=== PATIENT | female | born 1985 | race Caucasian/White ===

== ENCOUNTER 2022-08-06 16:23 | Emergency (ER) | payer OTHER ==
[2022-08-06 17:12] LABS: Absolute Neutrophil Ct (ANC) 4.32 x10^3/uL (1.4-6.9); Basophil (Absolute #) 0.07 x10^3/uL (0-0.4); Eosinophil % 4.9 % (0.00-5.0); Eosinophil (Absolute #) 0.41 x10^3/uL (0-0.5); Hematocrit 47.2 % (35-47); Hemoglobin 15.7 g/dL (12.0-16.0); Lymphocyte (Absolute #) 3.05 x10^3/uL (1.0-4.6); Lymphocytes % 36.7 % (24.0-44.0); Mean Cell Volume 90.9 fL (78-100); Mean Corpuscular Hemoglobin 30.3 pg (26-32); Mean Corpuscular Hgb Concent. 33.3 g/dL (32-36); Mean Platelet Volume 9.5 fL (7.5-11.0); Monocyte (Absolute #) 0.44 x10^3/uL (0.0-1.3); Monocytes % 5.3 % (0.0-12.0); Neutrophil % 51.9 % (36.0-66.0); Platelet Count 394 x10^3/uL (150-450); Red Blood Count 5.19 x10^6/uL (4.1-5.4); Red Cell Distribution Width 11.9 % (11.5-14.0); White Blood Count 8.3 x10^3/uL (4.0-10.5)
[2022-08-06 17:19] LABS: Barbiturate,Urine NEGATIVE (NEGATIVE); Benzodiazepine,Urine POSITIVE (NEGATIVE); Cocaine,Urine NEGATIVE (NEGATIVE); Methadone,Urine NEGATIVE (NEGATIVE); Opiate,Urine NEGATIVE (NEGATIVE); PCP,Urine NEGATIVE (NEGATIVE); THC,Urine POSITIVE (NEGATIVE)
[2022-08-06 17:26] LABS: ALBUMIN 4.4 g/dL (3.5-5.0); ALKALINE PHOSPHATASE 72 U/L (38-126); BLOOD UREA NITROGEN 11 mg/dL (7-17); CHLORIDE 103 mmol/L (98-107); Calcium 9.1 mg/dL (8.4-10.2); Carbon Dioxide 28 mmol/L (22-30); Creatinine 1 0.78 mg/dL (0.52-1.04); EST GLOMERULAR FILTRATION RATE > 60.0 ML/MIN; ETHYL ALCOHOL < 10 mg/dL (0-10); Glucose 100 mg/dL (74-106); Potassium 4.3 mmol/L (3.5-5.1); SGOT/AST 17 U/L (14-36); SGPT/ALT 16 U/L (0-35); SODIUM 139 mmol/L (137-145); Total Protein 7.4 g/dL (6.3-8.2)
[2022-08-06 17:49] LABS: INFLUENZA A NEGATIVE (NEGATIVE); INFLUENZA B NEGATIVE (NEGATIVE); RESPIRATORY SYNCTIAL VIRUS NEGATIVE (Negative); SARS-CoV-2 Xpert Express NEGATIVE (NEGATIVE)
--- NOTE | 2022-08-06 17:56 | ERPHSYRPT ---
- History of Present Illness Time Seen by Provider: 08/06/22 16:24 Source: patient, police Exam Limitations: no limitations Patient Subjective Stated Complaint: pt brought by police to be cleared [facility], they have ed papers signed by mixer operator, pt states she tried to hang herself with a rope, but states the rope kept coming loose.she staes she feels alone and has no one, her kds are with their dad. Triage Nursing Assessment: pt walked in , alert, resp easy, skin w/d/p. pt has bruising to neck under chin, no other injuries noted she staes she tried to hurt herself 2 days ago Physician History: 37 years old female with history of anxiety, depression is brought in the ER by PD for medical clearance. Patient apparently tried to hang herself couple of days ago, was Eded but could not find her. Patient today did admit to [facility] therapist that she has a plan of jumping in front of car. She does not want to live as she has no one to talk to her. Her kids have been taken of a and no family members live nearby. She has ideas of hopelessness, helplessness. Does report occasional use of drugs and alcohol. Denies any homicidal ideations. Timing/Duration: week(s), gradual onset, worse Severity of Symptoms-Max: severe Severity of Symptoms-Current: severe Context related to: son, daughter Suicidal thoughts: attempt, specific plan Associated Symptoms: depressed, frustrated, suicidal ideation Previous symptoms: same symptoms as today Allergies/Adverse Reactions: No Known Drug Allergies Allergy (Unverified 08/06/22 16:44) Home Medications: No Reportable Medications [No Reported Medications] 08/06/22 [History] Hx Tetanus, Diphtheria Vaccination/Date Given: No Hx Influenza Vaccination/Date Given: No Hx Pneumococcal Vaccination/Date Given: No Immunizations Up to Date: Yes Travel Risk - International Travel Have you traveled outside of the country in past 3 weeks: No - Coronavirus Screening Are you exhibiting any of the following symptoms?: No Close contact with a COVID-19 positive Pt in past 14-21 Days: No - Vaccine Status Have you recieved a Covid-19 vaccination: No - Past Medical History Pertinent Past Medical History: Yes Psycho-Social History: Anxiety, Depression - Past Surgical History Past Surgical History: No - Social History Smoking Status: Current every day smoker Exposure to second hand smoke: Yes Drug Use: marijuana Patient Lives Alone: Yes - Female History Hx Last Menstrual Period: unsure Hx Now: No - Review of Systems Constitutional: No Symptoms Eyes: No Symptoms Ears, Nose, & Throat: No Symptoms Respiratory: No Symptoms Cardiac: No Symptoms Abdominal/Gastrointestinal: No Symptoms Genitourinary Symptoms: No Symptoms Musculoskeletal: No Symptoms Neurological: No Symptoms Psychological: Anxiety, Depression, Suicidal Ideations Endocrine: No Symptoms Hematologic/Lymphatic: No Symptoms Immunological/Allergic: No Symptoms - Nursing Vital Signs Nursing Vital Signs: Initial Vital Signs Temperature 97.0 F 08/06/22 16:38 Pulse Rate 113 H 08/06/22 16:38 Respiratory Rate 18 08/06/22 16:38 Blood Pressure 127/100 08/06/22 16:38 O2 Sat by Pulse Oximetry 100 08/06/22 16:38 Pain Scale Pain Intensity 0 - Physical Exam General Appearance: no apparent distress, alert Eyes, Ears, Nose, Throat Exam: normal ENT inspection Neck Exam: normal inspection, non-tender, supple Respiratory Exam: normal breath sounds, lungs clear Cardiovascular Exam: normal heart sounds, tachycardia Gastrointestinal/Abdominal Exam: soft, normal bowel sounds, No tenderness Extremities Exam: normal inspection, normal range of motion Current Suicidality: has suicide plan Neurological Exam: alert, calm, sink cutter II-XII nml as tested, oriented x 3, No normal mood/affect Appearance: appropriate appearance, appropriate insight, neat, no memory impairment (Mild but) Behavior/Eye Contact/Speech: alert & cooperative, avoids eye contact, decreased rate of speech Thoughts/Hallucinations: no apparent hallucination Skin Exam: normal color SpO2 Interpretation: normal SpO2: 100 O2 Delivery: Room Air Lab/Rad Data: Laboratory Result Diagrams 08/06/22 17:10 08/06/22 17:10 Laboratory Results 08/06/22 08/06/22 08/06/22 Range/Units 17:10 17:10 17:10 WBC 8.3 (4.0-10.5) x10^3/uL RBC 5.19 (4.1-5.4) x10^6/uL Hgb 15.7 (12.0-16.0) g/dL Hct 47.2 H (35-47) % MCV 90.9 (78-100) fL MCH 30.3 (26-32) pg MCHC 33.3 (32-36) g/dL RDW 11.9 (11.5-14.0) % Plt Count 394 (150-450) x10^3/uL MPV 9.5 (7.5-11.0) fL Gran % 51.9 (36.0-66.0) % Immature Gran % (Auto) 0.4 (0.00-0.4) % Nucleat RBC Rel Count 0.0 (0.00-0.1) % Eos # (Auto) 0.41 (0-0.5) x10^3/uL Immature Gran # (Auto) 0.03 (0.00-0.03) x10^3u/L Absolute Lymphs (auto) 3.05 (1.0-4.6) x10^3/uL Absolute Monos (auto) 0.44 (0.0-1.3) x10^3/uL Absolute Nucleated RBC 0.00 (0.00-0.01) x10^3u/L Lymphocytes % 36.7 (24.0-44.0) % Monocytes % 5.3 (0.0-12.0) % Eosinophils % 4.9 (0.00-5.0) % Basophils % 0.8 (0.0-0.4) % Absolute Granulocytes 4.32 (1.4-6.9) x10^3/uL Basophils # 0.07 (0-0.4) x10^3/uL Sodium 139 (137-145) mmol/L Potassium 4.3 (3.5-5.1) mmol/L Chloride 103 (98-107) mmol/L Carbon Dioxide 28 (22-30) mmol/L Anion Gap 11.0 (5-15) MEQ/L BUN 11 (7-17) mg/dL Creatinine 0.78 (0.52-1.04) mg/dL Estimated GFR > 60.0 ML/MIN Glucose 100 (74-106) mg/dL Calcium 9.1 (8.4-10.2) mg/dL Total Bilirubin 0.70 (0.2-1.3) mg/dL AST 17 (14-36) U/L ALT 16 (0-35) U/L Alkaline Phosphatase 72 (38-126) U/L Serum Total Protein 7.4 (6.3-8.2) g/dL Albumin 4.4 (3.5-5.0) g/dL Urine HCG, Qual (Negative) Urine Opiates Level (NEGATIVE) Ur Methadone (NEGATIVE) Urine Barbiturates (NEGATIVE) Ur Phencyclidine (PCP) (NEGATIVE) Urine Amphetamine (NEGATIVE) U Benzodiazepine Level (NEGATIVE) Urine Cocaine (NEGATIVE) Urine Marijuana (THC) (NEGATIVE) Ethyl Alcohol < 10 (0-10) mg/dL Influenza Type A Ag NEGATIVE (NEGATIVE) Influenza Type B Ag NEGATIVE (NEGATIVE) RSV (PCR) NEGATIVE (Negative) SARS-CoV-2 (PCR) NEGATIVE (NEGATIVE) 08/06/22 08/06/22 Range/Units 16:45 16:45 WBC (4.0-10.5) x10^3/uL RBC (4.1-5.4) x10^6/uL Hgb (12.0-16.0) g/dL Hct (35-47) % MCV (78-100) fL MCH (26-32) pg MCHC (32-36) g/dL RDW (11.5-14.0) % Plt Count (150-450) x10^3/uL MPV (7.5-11.0) fL Gran % (36.0-66.0) % Immature Gran % (Auto) (0.00-0.4) % Nucleat RBC Rel Count (0.00-0.1) % Eos # (Auto) (0-0.5) x10^3/uL Immature Gran # (Auto) (0.00-0.03) x10^3u/L Absolute Lymphs (auto) (1.0-4.6) x10^3/uL Absolute Monos (auto) (0.0-1.3) x10^3/uL Absolute Nucleated RBC (0.00-0.01) x10^3u/L Lymphocytes % (24.0-44.0) % Monocytes % (0.0-12.0) % Eosinophils % (0.00-5.0) % Basophils % (0.0-0.4) % Absolute Granulocytes (1.4-6.9) x10^3/uL Basophils # (0-0.4) x10^3/uL Sodium (137-145) mmol/L Potassium (3.5-5.1) mmol/L Chloride (98-107) mmol/L Carbon Dioxide (22-30) mmol/L Anion Gap (5-15) MEQ/L BUN (7-17) mg/dL Creatinine (0.52-1.04) mg/dL Estimated GFR ML/MIN Glucose (74-106) mg/dL Calcium (8.4-10.2) mg/dL Total Bilirubin (0.2-1.3) mg/dL AST (14-36) U/L ALT (0-35) U/L Alkaline Phosphatase (38-126) U/L Serum Total Protein (6.3-8.2) g/dL Albumin (3.5-5.0) g/dL Urine HCG, Qual NEGATIVE (Negative) Urine Opiates Level NEGATIVE (NEGATIVE) Ur Methadone NEGATIVE (NEGATIVE) Urine Barbiturates NEGATIVE (NEGATIVE) Ur Phencyclidine (PCP) NEGATIVE (NEGATIVE) Urine Amphetamine POSITIVE (NEGATIVE) U Benzodiazepine Level POSITIVE (NEGATIVE) Urine Cocaine NEGATIVE (NEGATIVE) Urine Marijuana (THC) POSITIVE (NEGATIVE) Ethyl Alcohol (0-10) mg/dL Influenza Type A Ag (NEGATIVE) Influenza Type B Ag (NEGATIVE) RSV (PCR) (Negative) SARS-CoV-2 (PCR) (NEGATIVE) - Progress Progress: unchanged Progress Note: 08/06/22 18:14 37-year-old is evaluated for medical clearance as patient has already been accepted at [facility] for inpatient. Patient is medically cleared and is being discharged/transferred to [facility]. Counseled pt/family regarding: lab results, diagnosis, need for follow-up - Departure Departure Disposition: Transfer Clinical Impression: Suicide attempt, Polysubstance abuse, Severe depression Condition: Stable Critical Care Time: No Referrals: HEMA AYON [Primary Care Provider] - Follow up/PCP as directed
[2022-08-06 18:07] LABS: Amphetamine,Urine POSITIVE (NEGATIVE)
[2022-08-06 20:05] VITALS: BP 107/7; PULSE 85
[2022-08-08 14:41] VITALS: O2SAT 100
== END 2022-08-06 20:08 ==
LOC: ED 16:23
DX: T14.91XA Suicide attempt, initial encounter (principal); X83.8XXA Intentional self-harm by other specified means, initial encounter; F19.10 Other psychoactive substance abuse, uncomplicated; F32.2 Major depressive disorder, single episode, severe without psychotic features; Z63.79 Other stressful life events affecting family and household; Z72.0 Tobacco use; Z28.310 Unvaccinated for COVID-19
CPT/HCPCS: 0241U; 36415; 80053; 80307; 81025; 85025; 99284; G0480

== ENCOUNTER 2022-12-22 17:55 | Emergency (ER) | payer OTHER ==
[2022-12-22 18:08] VITALS: BP 125/81; PULSE 118; O2SAT 98
[2022-12-22 18:58] LABS: Group A Strep NOT DETECTED (NEGATIVE)
[2022-12-22 19:11] LABS: INFLUENZA A NEGATIVE (NEGATIVE); INFLUENZA B NEGATIVE (NEGATIVE); RESPIRATORY SYNCTIAL VIRUS NEGATIVE (NEGATIVE); SARS-CoV-2 Xpert Express NEGATIVE (NEGATIVE)
[2022-12-22] MEDS ORDERED: MOTRIN 600 MG PO ONE (19:46)
[2022-12-22] MEDS ORDERED: TYLENOL 325 MG PO ONE (19:46)
[2022-12-22] MEDS ORDERED: DECADRON 10MG INJ. IM ONE (19:46)
--- NOTE | 2022-12-22 19:55 | ERPHSYRPT ---
- History of Present Illness Time Seen by Provider: 12/22/22 19:50 Source: patient Exam Limitations: no limitations Patient Subjective Stated Complaint: Pt states "My throat is killing me." Triage Nursing Assessment: Pt presented alert and oriented X 3, skin pwd.Pt ambulates with an upright steady gait, able to speak in clear full sentences pt in no apparent respiratory distress. Physician History: Patient is a 37-year-old female presents to our ED for evaluation of sore throat x4 days. Symptoms have been progressive. No trauma. No fever. No nausea vomiting or diaphoresis. Symptoms are mild to moderate in intensity. Swelling reproduces pain. Patient voices no other complaints or concerns at this time. Portions of this note were created with voice recognition technology. There may be grammatical, spelling, punctuation or sound alike errors Timing/Duration: today Severity: moderate Modifying Factors: Improves With: nothing Associated Symptoms: denies symptoms Allergies/Adverse Reactions: No Known Drug Allergies Allergy (Unverified 08/06/22 16:44) Hx Tetanus, Diphtheria Vaccination/Date Given: No Hx Influenza Vaccination/Date Given: No Hx Pneumococcal Vaccination/Date Given: No Immunizations Up to Date: Yes Travel Risk - International Travel Have you traveled outside of the country in past 3 weeks: No - Coronavirus Screening Are you exhibiting any of the following symptoms?: Yes Symptoms: Fever, Cough: New Onset Close contact with a COVID-19 positive Pt in past 14-21 Days: No - Vaccine Status Have you recieved a Covid-19 vaccination: No - Review of Systems Constitutional: No Symptoms, No Fever, No Chills Eyes: No Symptoms Ears, Nose, & Throat: No Symptoms Respiratory: No Symptoms, No Cough, No Dyspnea Cardiac: No Symptoms, No Chest Pain, No Edema, No Syncope Abdominal/Gastrointestinal: No Symptoms, No Abdominal Pain, No Nausea, No Vomiting, No Diarrhea Genitourinary Symptoms: No Symptoms, No Dysuria Musculoskeletal: No Symptoms, No Back Pain, No Neck Pain Skin: No Symptoms, No Rash Neurological: No Symptoms, No Dizziness, No Focal Weakness, No Sensory Changes Psychological: No Symptoms Endocrine: No Symptoms Hematologic/Lymphatic: No Symptoms Immunological/Allergic: No Symptoms All Other Systems: Reviewed and Negative - Past Medical History Pertinent Past Medical History: Yes Psycho-Social History: Anxiety, Bipolar, Depression - Past Surgical History Past Surgical History: No - Social History Smoking Status: Current every day smoker Exposure to second hand smoke: Yes Drug Use: marijuana Patient Lives Alone: Yes - Female History Hx Last Menstrual Period: mirena Hx Now: No - Nursing Vital Signs Nursing Vital Signs: Initial Vital Signs Temperature 97.6 F 12/22/22 18:03 Pulse Rate 118 H 12/22/22 18:03 Respiratory Rate 22 12/22/22 18:03 Blood Pressure 125/81 12/22/22 18:03 O2 Sat by Pulse Oximetry 98 12/22/22 18:03 Pain Scale Pain Intensity 10 - Physical Exam General Appearance: no apparent distress, alert Eye Exam: PERRL/EOMI, eyes nml inspection Ears, Nose, Throat Exam: normal ENT inspection, TMs normal, moist mucous membranes, pharyngeal erythema, tonsillar exudate, other (Anterior cervical lymphadenopathy.) Neck Exam: normal inspection, non-tender, supple, full range of motion Respiratory Exam: normal breath sounds, lungs clear, airway intact, No respiratory distress Cardiovascular Exam: regular rate/rhythm, normal heart sounds, normal peripheral pulses Gastrointestinal/Abdomen Exam: soft, normal bowel sounds, No tenderness, No mass Back Exam: normal inspection, normal range of motion, No CVA tenderness, No vertebral tenderness Extremity Exam: normal inspection, normal range of motion, pelvis stable Neurologic Exam: alert, oriented x 3, cooperative, normal mood/affect, nml cerebellar function, nml station & gait, sensation nml, No motor deficits Skin Exam: normal color, warm, dry, No rash Lymphatic Exam: No adenopathy SpO2 Interpretation: normal SpO2: 98 O2 Delivery: Room Air - Course Nursing assessment & vital signs reviewed: Yes Ordered Tests: Medication Summary Discontinued Medications Generic Name Dose Route Start Last Admin Trade Name Freq PRN Reason Stop Dose Admin Acetaminophen 975 mg 12/22/22 19:46 Acetaminophen 325 Mg Tablet PO 12/22/22 19:47 STAT ONE Dexamethasone Sodium Phosphate 10 mg 12/22/22 19:46 Dexamethasone Sod Phosphate 10 Mg/Ml IM 12/22/22 19:47 STAT ONE Ibuprofen 600 mg 12/22/22 19:46 Ibuprofen 600 Mg Tablet PO 12/22/22 19:47 STAT ONE Lab/Rad Data: Laboratory Results 12/22/22 Range/Units 18:30 Influenza Type A Ag NEGATIVE (NEGATIVE) Influenza Type B Ag NEGATIVE (NEGATIVE) RSV (PCR) NEGATIVE (NEGATIVE) SARS-CoV-2 (PCR) NEGATIVE (NEGATIVE) Group A Strep Antibody NOT DETECTED (NEGATIVE) - Progress Progress: improved Progress Note: Patient is a 37-year-old female presents to our ED for evaluation of worsening throat pain. Physical exam reveals enlarged tonsils with exudate. There a ppears to be an associated pharyngitis. RN ordered rapid strep and viral panel. Rapid strep negative. However on physical exam patient meets [facility] criteria. I believe there is a reasonable likelihood that we are experiencing a false get of resolved in our rapid strep. Because of the severity of patient's findings as well as patient's meeting [facility] criteria for clinical diagnosis of strep th roat, I elected to treat patient with antibiotics. A prescription for Z-Stephen was forwarded to patient's pharmacy. Patient received a dose of Decadron for swelling. Patient received a dose of ibuprofen and Tylenol for pain control. Patient has not had any oral antipyretics. Patient received a dose of clindamycin IM. Complexity of patient's problem is moderate. Low. Acute uncomplicated problem no systemic manifestations. No critical care time. Patient's complaint is acute. Complexity of data reviewed and analyzed is limited. Test ordered. Results reviewed. Risk of complication and or risk of morbidity/mortality of patient management is moderate. Patient received prescription for a azithromycin/Z-Stephen. Patient agrees to follow-up with primary care doctor within 48 hours for reevaluation. Portions of this note were created with voice recognition technology. There may be grammatical, spelling, punctuation or sound alike errors Patient reassessed. She feels much better. Will discharge home. Patient will obtain her antibiotics tomorrow as discussed. Plan of care was established and agreed upon using the shared decision-making model. Vital stable. Patient voices no other complaints or concerns at this time. Portions of this note were created with voice recognition technology. There may be grammatical, spelling, punctuation or sound alike errors 12/22/22 19:58 Counseled pt/family regarding: lab results, diagnosis, need for follow-up - Departure Departure Disposition: Home Clinical Impression: Pharyngitis, Tonsillar exudate Condition: Stable Critical Care Time: No Referrals: DOCTOR,NO FAMILY [Primary Care Provider] - Follow up/PCP as directed ELI,ROSEANNA RAHEL, MD [ACTIVE STAFF] - Follow up/PCP as directed Additional Instructions: Discharge/Care Plan ELAYNE RODRIGUEZ was seen on 12/22/22 in the Emergency Room. The patient was counseled regarding Diagnosis,Lab results, Imaging studies, need for follow up and when to return to the Emergency Room. Prescriptions given: Discharge Note I have spoken with the patient and/or caregivers. I have explained the patient's condition, diagnosis and treatment plan based on the information available to me at this time. I have answered the patient's and/or caregiver's questions and addressed any concerns. The patient and/or caregivers have as good understanding of the patient's diagnosis, condition and treatment plan as can be expected at this point. The vital signs have been stable. The patient's condition is stable and appropriate for discharge from the emergency department. The patient will pursue further outpatient evaluation with the primary care physician or other designated or consulting physician as outlined in the discharge instructions. The patient and/or caregivers are agreeable to this plan of care and follow-up instructions have been explained in detail. The patient a nd/or caregivers have received these instruction. The patient/and or caregivers are aware that any significant change in condition or worsening of symptoms should prompt an immediate return to this or the closest emergency department or call 911. Prescriptions: Azithromycin 250 mg [Zithromax 250 MG TABLET] 250 mg PO ZPACK #6 tablet
[2022-12-22] MEDS ORDERED: MOTRIN 600 MG ONE (19:59)
[2022-12-22] MEDS ORDERED: TYLENOL 325 MG ONE (19:59)
[2022-12-22] MEDS ORDERED: DECADRON 10MG INJ. ONE (19:59)
== END 2022-12-22 20:59 | disposition home or self-care (01) ==
LOC: ED 17:55
DX: J02.9 Acute pharyngitis, unspecified (principal); Z28.310 Unvaccinated for COVID-19; Z72.0 Tobacco use
CPT/HCPCS: 0241U; 87651; 96372; 99283; J1100; A9270-GY